=== PATIENT | male | born 1975 | race African-American/Black ===

== ENCOUNTER 2018-10-21 06:55 | Inpatient (IN) | payer SELFPAY ==
[2018-10-21] MEDS ORDERED: Nitroglycerin 2% Ointment 1 INCH/1 GM Packet ONE (07:14)
[2018-10-21 07:21] LABS: #Eosinphils 0.1 thou/uL (0.0-0.7); #Lymphocytes 1.9 thou/uL (1.20-3.40); #Monocytes 1.1 thou/uL (0.11-0.59); #Neutrophils 6.5 thou/uL (1.40-6.50); %Basophils 0.2 % (0.0-1.0); %Eosinophils 1.4 % (0.0-10.0); %Lymphocytes 19.6 % (21.0-51.0); %Monocytes 11.4 % (0.0-10.0); %Neutrophils 67.4 % (42.0-75.0); Hemoglobin 14.2 g/dL (14.0-18.0); Mean Corpuscular HGB CONC 32.6 g/dL (32.0-36.0); Mean Corpuscular Hemoglobin 31.9 pg (27.0-31.0); Mean Corpuscular Volume 97.7 fL (78.0-98.0); Mean Platelet Volume 6.5 fL (7.4-10.4); Platelet Count 204 thou/uL (130-400); RBC Distribution Width 12.2 % (11.5-14.5); Red Blood Cell (RBC) Count 4.47 mill/uL (4.70-6.10); White Blood Cell (WBC) Count 9.7 thou/uL (4.8-10.8)
[2018-10-21 07:39] LABS: ALT (SGPT) 39 U/L (8-55); AST (SGOT) 43 U/L (5-34); Albumin 3.9 g/dL (3.5-5.0); Alkaline Phosphatase 90 U/L (40-150); Anion Gap 13 mmol/L (10-20); BUN (Urea Nitrogen) 17 mg/dL (8.9-20.6); Bilirubin, Total 0.6 mg/dL (0.2-1.2); Calc. Creatinine Clearance 0 mL/min (70-130); Carbon Dioxide 25 mmol/L (22-29); Chloride 107 mmol/L (98-107); Estimated GFR-MDRD 75; Globulin 3.4 g/dL (2.4-3.5); Glucose 122 mg/dL (70-105); Potassium 4.3 mmol/L (3.5-5.1); Protein, Total 7.3 g/dL (6.0-8.3); Sodium 141 mmol/L (136-145)
[2018-10-21 08:16] LABS: Bilirubin Negative (Negative); Blood, Urine Moderate (Negative); Clarity CLEAR (Clear); Glucose, Urine (Dipstick) Negative (Negative); Leukocyte Negative (Negative); Nitrite Negative (Negative); Protein, Urine (Dipstick) Negative (Neg-Trace); Specific Gravity, Urine 1.003 (1.002-1.036); Urobilinogen 0.2 mg/dL (0.2-1.0)
[2018-10-21 08:18] LABS: Bacteria/HPF None Seen HPF (None Seen); Hyaline Casts/LPF 0-3 HYALINE CAST LPF (0-3 Hyaline); Squamous Epithelial 0-3 HPF (0-3); WBC/HPF None Seen HPF (0-3)
[2018-10-21 08:26] LABS: Medtox Reader # READER 1
[2018-10-21 08:27] LABS: Amphetamine Not Detected (NotDetected); Barbiturates Screen Not Detected (NotDetected); Benzodiazepine Screen Not Detected (NotDetected); Cocaine Metabolite Screen Not Detected (NotDetected); Medtox Control Line Valid? VALID (VALID); Methadone Not Detected (NotDetected); Methamphetamine Not Detected (NotDetected); Opiate Screen Not Detected (NotDetected); Oxycodone Screen Not Detected (NotDetected); Phencyclidine (PCP) Not Detected (NotDetected); THC/Cannabinoid Screen Detected (NotDetected); Tricyclic Screen Not Detected (NotDetected)
[2018-10-21] MEDS ORDERED: Nitroglycerin 0.4 MG TAB (25 Tab Bottle) PO PRN (08:31)
[2018-10-21] MEDS ORDERED: Aspirin 325 mg Enteric Coated Tablet PO SCH (09:00)
[2018-10-21] MEDS ORDERED: Ondansetron PF 4 MG/2 ML Vial IVP PRN (09:26)
[2018-10-21] MEDS ORDERED: Ondansetron ODT 4 MG TAB PO PRN (09:27)
[2018-10-21] MEDS ORDERED: Heparin 25,000 units/D5W 500 ML IV SCH ×2 (09:30→13:30)
[2018-10-21] MEDS ORDERED: ISOVUE-370 76%-LOCM 1 ML ONE (11:05)
--- NOTE | 2018-10-21 11:21 | HP ---
PRIMARY CARE PROVIDER: Cathryn Adams PA-C CHIEF COMPLAINT: Chest pain. HISTORY OF PRESENT ILLNESS: Mr. Fregoso is a pleasant 43-year-old gentleman, who was seen at [facility] on October 21, 2018. He was transferred here from [place], where he presented with chest pain. He reports that 2 days ago, he traveled to [place]. He was a intermodal truck driver. Yesterday, he developed pain in his left upper thigh. Around 2:00 a.m. today, he woke up with retrosternal chest discomfort. He describes it as a "gas pain." He had difficulty breathing. He was also nauseous. He describes that the sensation was persistent and improved after he presented to the emergency room. He does not know if the pain improved because of the medications he received or because of time. REVIEW OF SYSTEMS: All other systems reviewed and found to be negative. PAST MEDICAL HISTORY: None. PAST SURGICAL HISTORY: Back surgery. PSYCHIATRIC HISTORY: Anxiety. SOCIAL HISTORY: The patient smokes one pack of cigarettes a day. He drinks alcohol occasionally. He uses marijuana occasionally. FAMILY HISTORY: Myocardial infarction and end-stage renal disease in his mother. ALLERGIES: NO KNOWN DRUG ALLERGIES. CURRENT MEDICATIONS: None. PHYSICAL EXAMINATION: GENERAL: On examination, Mr. Fregoso is awake and alert, not in any acute distress. He is obese. VITAL SIGNS: Blood pressure is 131/83, pulse 104, respiratory rate 16, oxygen saturation of 96% on 2 L of oxygen, and temperature in the emergency room is 99.5 degrees Fahrenheit. EYES: No scleral icterus. No conjunctival pallor. ENT: Moist mucosal membranes. No oropharyngeal erythema or exudates. NECK: Supple and nontender. Trachea is midline. RESPIRATORY: Accessory muscles of breathing are not active. Chest wall movements are symmetric bilaterally. Lungs are clear to auscultation without wheeze, rhonchi, or crepitations. CARDIOVASCULAR: S1 and S2 are heard, tachycardic and regular. Peripheral pulses are palpable. No carotid bruit. No pericardial rub. ABDOMEN: Soft and nontender. Bowel sounds are heard. No hepatomegaly. No splenomegaly. NEUROLOGIC: Cranial nerves 2 through 12 are intact. Deep tendon reflexes are 2+. MUSCULOSKELETAL: Power is 5/5 in all 4 extremities. SKIN: No rashes or subcutaneous nodules. LYMPHATIC: No cervical lymphadenopathy. PSYCHIATRIC: Normal mood, normal affect, the patient is oriented to person, place, and time. LABORATORY DATA: Mr. Fregoso's labs and investigations were reviewed. I reviewed his electrocardiogram, which shows sinus tachycardia. No ST changes to suggest an acute coronary syndrome. He has a right bundle-branch block. I also reviewed his chest x-ray, which does not show any pulmonary infiltrates. He has normal white count, normal hemoglobin, normal platelet count, mildly elevated AST of 43, otherwise unremarkable comprehensive metabolic profile. Elevated troponin-I of 0.194. Urinalysis negative for nitrite and leukocyte esterase. Urine toxicology screen positive for cannabinoids. ASSESSMENT AND PLAN: Mr. Fregoso is a pleasant 43-year-old gentleman, who was seen at [facility] on October 21, 2018. His problem list includes: 1. Chest pain: Etiology unclear, he has risk factors for both pulmonary embolism and cardiac etiologies of chest pain. He will be admitted to the hospital on court monitor. He will have his troponin rechecked. Cardiology Service will be consulted for opinion and help with management. We will also check D-dimer to rule out pulmonary embolism. 2. Sinus tachycardia: We will monitor on telemetry. We will check D-dimer to rule out pulmonary embolism. 3. Tobacco abuse: The patient has been counseled regarding tobacco cessation. We will start him on nicotine replacement therapy. 4. Cannabinoid use: The patient has been counseled regarding cannabinoid use. Many thanks for allowing me to participate in Mr. Fregoso's care. Please feel free to contact me with any questions or concerns. LEVEL OF RISK: High. LEVEL OF COMPLEXITY: High. Job ID: [id number]
[2018-10-21 11:31] VITALS: BMI 34.8
[2018-10-21] MEDS: Nicotine 21 MG PATCH TD SCH (11:52)
[2018-10-21 11:56] LABS: Cardiac Risk 5.9 (Less than 4.5)
[2018-10-21 12:05] LABS: Troponin I 1.455 ng/mL (< 0.028)
[2018-10-21] MEDS ORDERED: Heparin 10,000 UNITS/ 10 ML VIAL SLOW IVP SCH ×2 (12:45→13:30)
--- NOTE | 2018-10-21 13:12 | CT ---
CT ANGIOGRAM CHEST WITH CONTRAST, AND 3-D VOLUME RENDERING CLINICAL INDICATION: Shortness of breath and chest pain and elevated d-dimer COMPARISON: None FINDINGS: Pulmonary arteries: Multiple filling defects are seen in the bilateral pulmonary arteries including t he main pulmonary arteries bilaterally with large filling defects in the distal right main pulmonary artery as well as involving the proximal segmental pulmonary arteries much greater in the r ight upper lobe. Findings are consistent with extensive bilateral pulmonary emboli including a saddle embolus. Aorta: Minimal vascular calcifications are seen. The ascending thoracic aorta is ectatic measuring 4. 3 cm in greatest AP dimension. Lungs: There is atelectasis seen involving the lower lobes bilaterally. No consolidation or pleural f luid is seen. Mediastinum: No enlarged lymph nodes are seen. Osseous structures: No acute process. A subcentimeter exophytic hypodense lesion is seen at the superior pole right kidney statistically li estela representing a cyst. The remainder of the upper abdomen demonstrates grossly normal appearance for arterial phase of imaging. IMPRESSION: 1. Extensive bilateral pulmonary emboli. 2. Above findings discussed with Dr. Correa on 10/21/2018 at 1304 hours.
[2018-10-21] MEDS ORDERED: diphenhydrAMINE 50 MG/ML VIAL IVP SCH (18:00)
[2018-10-21 19:54] LABS: PTT 245.8 SEC (22.9-36.1)
[2018-10-21] MEDS ORDERED: Enoxaparin Sodium 40 MG/0.4 ML SYRINGE SC SCH (21:00)
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
--- NOTE | 2018-10-22 01:37 | CON ---
DATE OF CONSULTATION: HISTORY: Sofiya Fregoso is a 43-year-old black male without any significant past medical history. Yesterday, he did take a long car trip driving to 2-1/2 hours to a location and then 2-1/2 hours back. Last night, he noticed pain in his inner left thigh. He went to sleep and later that night woke up and the pain there was gone. However, he noticed that he was short of breath and had a pressure in the central part of his chest. Breathing seemed to get worse. He became diaphoretic and also nauseous. Ultimately, he went to the emergency room in [place], and was transferred here for further evaluation. He underwent CT angiogram of the chest , which revealed extensive bilateral pulmonary emboli. He has been placed on intravenous heparin. His symptoms have since subsided. He did have elevated troponin I. PAST MEDICAL HISTORY: He denies any history of hypertension or diabetes. He may have been told in the past his cholesterol is elevated. MEDICATIONS: None. ALLERGIES: NONE. OPERATIONS: Surgery on injured leg from playing football. SOCIAL HISTORY: He smokes 1 pack per day. He also smokes marijuana. He occasionally drinks. FAMILY HISTORY: Mother may have had myocardial infarction. REVIEW OF SYSTEMS: A 10-point review of systems is otherwise unremarkable. PHYSICAL EXAMINATION: VITAL SIGNS: Blood pressure 115/77, pulse of 105. HEENT: PERRL. NECK: Supple. CHEST: Clear. CARDIAC: S1 and S2 normal without any S3, S4, or murmurs. Carotid upstroke is normal without bruits. ABDOMEN: Normal bowel sounds without tenderness, or organomegaly. EXTREMITIES: Revealed no clubbing, cyanosis, or edema. There is no palpable tenderness in the left thigh at this time. NEUROLOGIC: Grossly intact. SKIN: Warm and dry. LABORATORY DATA: EKG revealed sinus tachycardia with right bundle-branch block, nonspecific T-wave changes. Hemoglobin 14.2, hematocrit 43.6, white count 9700, platelets 204,000. D-dimer 17.4. CT angiogram of the chest as noted above. Sodium 141, potassium 4.3, chloride 107, carbon dioxide 25, BUN 17, creatinine 1.27, glucose 122. Troponin I is up to 1.455. Cholesterol 189, triglycerides 128, HDL 32, and LDL 131. Urine drug screen was positive for cannabinoids only. IMPRESSION: 1. Bilateral pulmonary emboli. 2. Elevated troponin I. This certainly could be his result of his severe pulmonary embolism. 3. Hypercholesterolemia. 4. Smoker. PLAN: The patient currently is on intravenous heparin, this is being held due to an elevated PTT. He will need to be transitioned to Coumadin. He does not have health insurance, I doubt that he can pay for the newer oral anticoagulants. We discussed the need for consistent low vitamin K intake and frequent checking of the INR. Consideration should be given in the future to possible cardiac catheterization with his elevated troponin I and risk factors of smoking and hypercholesterolemia. However, at the current time, his most important issue is anticoagulation. Job ID: [id number] [email or web address]
[2018-10-22 02:46] LABS: Hemoglobin 13.9 g/dL (14.0-18.0); Lymphocytes 22 % (21-51); MDiff Complete? YES; Mean Corpuscular HGB CONC 32.3 g/dL (32.0-36.0); Mean Corpuscular Volume 95.9 fL (78.0-98.0); Mean Platelet Volume 6.2 fL (7.4-10.4); Monocytes 7 % (0-10); Neutrophil 71 % (42-75); Platelet Count 194 thou/uL (130-400); Platelet Morphology Comment Appears Adequate; RBC Distribution Width 12.1 % (11.5-14.5); RBC Morphology Normal; Red Blood Cell (RBC) Count 4.48 mill/uL (4.70-6.10); White Blood Cell (WBC) Count 8.1 thou/uL (4.8-10.8)
[2018-10-22 02:52] LABS: Anion Gap 14 mmol/L (10-20); BUN (Urea Nitrogen) 11 mg/dL (8.9-20.6); Calc. Creatinine Clearance 156 mL/min (70-130); Calcium 9.1 mg/dL (7.8-10.44); Carbon Dioxide 20 mmol/L (22-29); Chloride 107 mmol/L (98-107); Estimated GFR-MDRD 84; Glucose 102 mg/dL (70-105); Potassium 3.9 mmol/L (3.5-5.1); Sodium 137 mmol/L (136-145)
--- NOTE | 2018-10-22 09:37 | ULT ---
ULTRASOUND WITH DOPPLER DUPLEX VENOUS LOWER EXTREMITY BILATERAL: CPT: 76982 ICD-10-PCS: B54D HISTORY: History of pulmonary thromboembolism, edema. TECHNIQUE: Color flow Doppler, spectral waveform analysis of pulsed Doppler, and avila-scale imaging with jazz huan and augmentation, were used to evaluate the bilateral common femoral, femoral, popliteal, florist's decorator ior tibial, and superficial femoral, veins; and the proximal portions of the profunda femoral and gre ater saphenous, veins. FINDINGS: There is appropriate compressibility and flow within the deep vein structures of the right lower extr emity. Within the popliteal vein of the left lower extremity, there is absence of normal compressibi lity and limited flow compatible with DVT. Remaining deep vein structures of the left lower extremit y are patent. IMPRESSION: Deep vein thrombosis of the left popliteal vein. POS: ROSY
[2018-10-22] MEDS ORDERED: Enoxaparin Sodium 100 MG/ML SYRINGE SC SCH (12:15)
[2018-10-22] MEDS ORDERED: Enoxaparin Sodium 30 MG/0.3 ML SYRINGE SC SCH (12:15)
[2018-10-22] MEDS: Nicotine 21 MG PATCH TD SCH (12:25)
--- NOTE | 2018-10-22 12:55 | PRG ---
DATE OF SERVICE: 10/22/2018 SUBJECTIVE: Mr. Fregoso is doing well. He has no chest pain or shortness of breath. OBJECTIVE: VITAL SIGNS: On exam, temperature 98.6, pulse 90, respirations 16, O2 saturation 93% on room air, and blood pressure 114/82. HEENT: Unremarkable. NECK: No JVD. LUNGS: Clear. CARDIAC: S1 and S2. Regular. ABDOMEN: Soft. EXTREMITIES: No edema. LABORATORY DATA: His Doppler ultrasound showed a left popliteal DVT. White blood cell count is 8.1, hematocrit 43, and platelet count 194. Sodium 137, potassium 3.9, chloride 107, CO2 of 20, BUN 11, creatinine 1.1, and glucose 102. ASSESSMENT: Deep vein thrombosis/pulmonary embolism. PLAN: I have restarted the Lovenox that was discontinued by the Sound coverage person last night. I have spoken with the nursing staff and the patient's covering Sound Physician today about anticoagulation. The patient needs to be anticoagulated for 6 months. Job ID: [id number]
[2018-10-22 14:46] LABS: Prothrombin Time 13.7 SEC (12.0-14.7)
--- NOTE | 2018-10-22 14:59 | PDOC.PN ---
- Subjective Encounter Start Date: 10/22/18 Encounter Start Time: 14:58 Subjective: feels better. no CP/leg pain or SOB -: care discussed w family at bedside. - Objective MAR Reviewed: Yes Vital Signs & Weight: Vital Signs (12 hours) Temp Pulse Resp BP Pulse Ox 10/22/18 12:34 98.6 F 90 16 114/82 93 L 10/22/18 08:00 98.6 F 83 18 121/81 94 L 10/22/18 07:33 97 10/22/18 03:10 99.2 F 97 18 130/80 93 L Weight Weight 291 lb I&O: 10/21/18 10/22/18 10/23/18 06:59 06:59 06:59 Intake Total 240 180 Balance 240 180 Result Diagrams: 10/22/18 02:10 10/22/18 02:10 Additional Labs: Laboratory Tests 10/21/18 10/21/18 10/21/18 05:23 07:12 11:31 D-Dimer Troponin I 0.194 H 1.120 H* 1.455 H* Triglycerides Cholesterol LDL Cholesterol, Calc HDL Cholesterol 10/21/18 10/21/18 11:31 11:31 D-Dimer 17.44 H Troponin I Triglycerides 128 Cholesterol 189 LDL Cholesterol, Calc 131 HDL Cholesterol 32 Phys Exam - Physical Examination Constitutional: NAD HEENT: PERRLA, moist MMs, sclera anicteric, oral pharynx no lesions Neck: no nodes, no JVD, supple, full ROM Respiratory: no wheezing, no rales, no rhonchi, clear to auscultation bilateral Cardiovascular: RRR, no significant murmur Gastrointestinal: soft, non-tender, no distention, positive bowel sounds Musculoskeletal: no edema, pulses present Neurological: non-focal, normal sensation, moves all 4 limbs Psychiatric: normal affect, A&O x 3 Skin: no rash Dx/Plan (1) Pulmonary embolism Code(s): I26.99 - OTHER PULMONARY EMBOLISM WITHOUT ACUTE COR PULMONALE Status : Acute Qualifiers: Pulmonary embolism type: saddle Chronicity: acute Comment: on anticoagulation (2) Deep vein thrombosis (DVT) of left lower extremity Code(s): I82.402 - ACUTE EMBOLISM AND THOMBOS UNSP DEEP VEINS OF L LOW EXTREM Status: Acute Qualifiers: Affected thrombotic vein of extremity: popliteal Chronicity: acute Qualified Code(s): I82.432 - Acute embolism and thrombosis of left popliteal vein (3) Troponin level elevated Code(s): R74.8 - ABNORMAL LEVELS OF OTHER SERUM ENZYMES Status: Acute Comment: due to Right ventricular strain from Acute PE.ECHO pending (4) Tobacco abuse Code(s): Z72.0 - TOBACCO USE Status: Chronic (5) Tobacco abuse counseling Code(s): Z71.6 - TOBACCO ABUSE COUNSELING Status: Acute - Plan plan discussed w/ family, DVT proph w/SCDs Clinicaly stable. discussed retirement OAC.would prefer Couamdin d/t cost -: Cont Lovenox BID 1mg/kg for now.heparin drip stopped. -: start coumadin toniught & monitor PT/INR -: CM to assist w OP INR monitoring -: monitor Troponin & H/H & Cr.follow ECHO. * . Review of Systems - Review of Systems Constitutional: negative: fever, chills, sweats, weakness, malaise, other ENT: negative: Ear Pain, Ear Discharge, Nose Pain, Nose Discharge, Nose Congestion, Mouth Pain, Mouth Swelling, Throat Pain, Throat Swelling, Other Respiratory: negative: Cough, Dry, Shortness of Breath, Hemoptysis, SOB with Excertion, Pleuritic Pain, Sputum, Wheezing Cardiovascular: negative: chest pain, palpitations, orthopnea, paroxysmal nocturnal dyspnea, edema, light headedness, other Gastrointestinal: negative: Nausea, Vomiting, Abdominal Pain, Diarrhea, Constipation, Melena, Hematochezia, Other Genitourinary: negative: Dysuria, Frequency, Incontinence, Hematuria, Retention , Other Musculoskeletal: negative: Neck Pain, Shoulder Pain, Arm Pain, Back Pain, Hand Pain, Leg Pain, Foot Pain, Other Neurological: negative: Weakness, Numbness, Incoordination, Change in Speech, Confusion, Seizures, Other - Medications/Allergies Allergies/Adverse Reactions: Allergies Allergy/AdvReac Type Severity Reaction Status Date / Time No Known Drug Allergies Allergy Verified 10/21/18 10:44 Medications: Current Medications Enoxaparin Sodium (Lovenox) 100 mg SC 0900,2100 [facility] Enoxaparin Sodium (Lovenox) 30 mg SC 0900,2100 [facility] Nicotine (Nicoderm Patch) 21 mg TD Q24H [facility] Last Admin: 10/22/18 12:25 Dose: 21 mg Nitroglycerin (Nitrostat) 0.4 mg PO Q5MIN PRN PRN Reason: Chest Pain Last Admin: 10/21/18 10:38 Dose: 0.4 mg Sodium Chloride (Flush - Normal Saline) 10 ml IVF Q12HR [facility] Last Admin: 10/22/18 12:25 Dose: 10 ml Sodium Chloride (Flush - Normal Saline) 10 ml IVF PRN PRN PRN Reason: Saline Flush Warfarin Sodium (Coumadin) 10 mg PO 1700 [facility]
[2018-10-22] MEDS: Warfarin Sodium 10 MG TAB PO SCH (17:54)
[2018-10-22] MEDS: Enoxaparin Sodium 30 MG/0.3 ML SYRINGE SC SCH (20:05)
[2018-10-22] MEDS: Enoxaparin Sodium 100 MG/ML SYRINGE SC SCH (20:05)
[2018-10-22 22:45] LABS: Hemoglobin 14.4 g/dL (14.0-18.0); Platelet Count 206 thou/uL (130-400)
[2018-10-22] MEDS: Melatonin 3 MG TAB PO PRN (23:56)
[2018-10-23 05:14] LABS: Prothrombin Time 13.5 SEC (12.0-14.7)
[2018-10-23 05:29] LABS: Eosinophils 1 % (0-10); Hemoglobin 14.4 g/dL (14.0-18.0); Lymphocytes 29 % (21-51); MDiff Complete? YES; Mean Corpuscular HGB CONC 33.6 g/dL (32.0-36.0); Mean Corpuscular Hemoglobin 32.3 pg (27.0-31.0); Mean Corpuscular Volume 96.3 fL (78.0-98.0); Mean Platelet Volume 6.5 fL (7.4-10.4); Monocytes 9 % (0-10); Neutrophil 61 % (42-75); Platelet Count 207 thou/uL (130-400); Platelet Morphology Comment Appears Adequate; RBC Distribution Width 11.9 % (11.5-14.5); Red Blood Cell (RBC) Count 4.45 mill/uL (4.70-6.10); White Blood Cell (WBC) Count 8.9 thou/uL (4.8-10.8)
[2018-10-23 05:30] LABS: Anion Gap 17 mmol/L (10-20); BUN (Urea Nitrogen) 15 mg/dL (8.9-20.6); Calc. Creatinine Clearance 152 mL/min (70-130); Calcium 9.4 mg/dL (7.8-10.44); Carbon Dioxide 18 mmol/L (22-29); Chloride 106 mmol/L (98-107); Estimated GFR-MDRD 83; Glucose 87 mg/dL (70-105); Potassium 3.9 mmol/L (3.5-5.1); Sodium 137 mmol/L (136-145)
[2018-10-23] MEDS: Enoxaparin Sodium 100 MG/ML SYRINGE SC SCH ×2 (08:14→20:55)
[2018-10-23] MEDS: Enoxaparin Sodium 30 MG/0.3 ML SYRINGE SC SCH ×2 (08:15→20:56)
--- NOTE | 2018-10-23 10:08 | PRG ---
DATE OF SERVICE: SUBJECTIVE: The patient is doing reasonably well, has no acute complaints. OBJECTIVE: VITAL SIGNS: Temperature 98.4, pulse 78, respirations 18, O2 saturation 92%, blood pressure 139/87. HEENT: Unremarkable. NECK: No JVD. CHEST: Clear. CARDIAC: S1, S2. Regular. ABDOMEN: Soft. EXTREMITIES: No edema. LABORATORY DATA: White blood cell count 8.9, hematocrit 42.8, and platelet count 207. Sodium 137, potassium 3.9, chloride 106, CO2 of 18, BUN 15, creatinine 1.1, glucose 87. ASSESSMENT: Deep vein thrombosis/pulmonary embolism. RECOMMENDATIONS: I have concerns that he would not be able to acquire Eliquis or Xarelto for the full 6 months' duration. Therefore, I would recommend Coumadin. Goal INR needs to be between 2.0 and 2.5, and duration needs to be 6 months. Job ID: [id number]
[2018-10-23] MEDS: Nicotine 21 MG PATCH TD SCH (11:03)
--- NOTE | 2018-10-23 14:24 | PDOC.PN ---
- Subjective Encounter Start Date: 10/23/18 Encounter Start Time: 14:22 Subjective: no new complaints.no CP/SOB. -: wishes to pursue assistance program for asad -: care discussed w at bedside - Objective MAR Reviewed: Yes Vital Signs & Weight: Vital Signs (12 hours) Temp Pulse Resp BP Pulse Ox 10/23/18 12:05 97.9 F 94 18 120/77 93 L 10/23/18 08:15 93 L 10/23/18 08:00 98.2 F 89 18 131/85 93 L 10/23/18 03:15 98.4 F 78 18 139/87 92 L Weight Weight 289 lb 6.4 oz I&O: 10/22/18 10/23/18 10/24/18 06:59 06:59 06:59 Intake Total 240 1350 Output Total 250 Balance 240 1100 Result Diagrams: 10/23/18 04:14 10/23/18 04:14 Phys Exam - Physical Examination Constitutional: NAD HEENT: PERRLA, moist MMs, sclera anicteric, oral pharynx no lesions Neck: no nodes, no JVD, supple, full ROM Respiratory: no wheezing, no rales, no rhonchi, clear to auscultation bilateral Cardiovascular: RRR, no significant murmur, no rub Gastrointestinal: soft, non-tender, no distention, positive bowel sounds Musculoskeletal: no edema, pulses present Neurological: non-focal, normal sensation, moves all 4 limbs Psychiatric: normal affect, A&O x 3 Skin: no rash Dx/Plan (1) Pulmonary embolism Code(s): I26.99 - OTHER PULMONARY EMBOLISM WITHOUT ACUTE COR PULMONALE Status : Acute Qualifiers: Pulmonary embolism type: saddle Chronicity: acute Comment: on anticoagulation (2) Deep vein thrombosis (DVT) of left lower extremity Code(s): I82.402 - ACUTE EMBOLISM AND THOMBOS UNSP DEEP VEINS OF L LOW EXTREM Status: Acute Qualifiers: Affected thrombotic vein of extremity: popliteal Chronicity: acute Qualified Code(s): I82.432 - Acute embolism and thrombosis of left popliteal vein (3) Troponin level elevated Code(s): R74.8 - ABNORMAL LEVELS OF OTHER SERUM ENZYMES Status: Acute Comment: due to Right ventricular strain from Acute PE.ECHO pending (4) Tobacco abuse Code(s): Z72.0 - TOBACCO USE Status: Chronic (5) Tobacco abuse counseling Code(s): Z71.6 - TOBACCO ABUSE COUNSELING Status: Acute - Plan plan discussed w/ family, DVT proph w/SCDs Agree with .Pt poor candidate for eliquis as unfunded & high risk -: of missing doses.will recommend Coumadin w F/U for INR at PCP -: PCP set up in process -: cont coumadin w daily INR monitoring.Cont Lovenox 1 mg/kg for bridiging. -: H/H stable.Monitor.Will keep in house untill INR therapeutic * . Review of Systems - Review of Systems Constitutional: negative: fever, chills, sweats, weakness, malaise, other ENT: negative: Ear Pain, Ear Discharge, Nose Pain, Nose Discharge, Nose Congestion, Mouth Pain, Mouth Swelling, Throat Pain, Throat Swelling, Other Respiratory: negative: Cough, Dry, Shortness of Breath, Hemoptysis, SOB with Excertion, Pleuritic Pain, Sputum, Wheezing Cardiovascular: negative: chest pain, palpitations, orthopnea, paroxysmal nocturnal dyspnea, edema, light headedness, other Gastrointestinal: negative: Nausea, Vomiting, Abdominal Pain, Diarrhea, Constipation, Melena, Hematochezia, Other Genitourinary: negative: Dysuria, Frequency, Incontinence, Hematuria, Retention , Other Musculoskeletal: negative: Neck Pain, Shoulder Pain, Arm Pain, Back Pain, Hand Pain, Leg Pain, Foot Pain, Other Neurological: negative: Weakness, Numbness, Incoordination, Change in Speech, Confusion, Seizures, Other - Medications/Allergies Allergies/Adverse Reactions: Allergies Allergy/AdvReac Type Severity Reaction Status Date / Time No Known Drug Allergies Allergy Verified 10/21/18 10:44 Medications: Current Medications Enoxaparin Sodium (Lovenox) 100 mg SC 0900,2099 [facility] Last Admin: 10/23/18 08:14 Dose: 100 mg Enoxaparin Sodium (Lovenox) 30 mg SC 0900,2099 [facility] Last Admin: 10/23/18 08:15 Dose: 30 mg Melatonin (Melatonin) 6 mg PO HS PRN PRN Reason: Insomnia Last Admin: 10/22/18 23:56 Dose: 6 mg Nicotine (Nicoderm Patch) 21 mg TD Q24H [facility] Last Admin: 10/23/18 11:03 Dose: Not Given Nitroglycerin (Nitrostat) 0.4 mg PO Q5MIN PRN PRN Reason: Chest Pain Last Admin: 10/21/18 10:38 Dose: 0.4 mg Sodium Chloride (Flush - Normal Saline) 10 ml IVF Q12HR [facility] Last Admin: 10/23/18 08:16 Dose: 10 ml Sodium Chloride (Flush - Normal Saline) 10 ml IVF PRN PRN PRN Reason: Saline Flush Warfarin Sodium (Coumadin) 10 mg PO 1700 [facility] Last Admin: 10/22/18 17:54 Dose: 10 mg
[2018-10-23] MEDS: Warfarin Sodium 10 MG TAB PO SCH (17:11)
[2018-10-23] MEDS: Melatonin 3 MG TAB PO PRN (23:18)
[2018-10-24 07:13] LABS: #Basophils 0.1 thou/uL (0.0-0.2); #Eosinphils 0.2 thou/uL (0.0-0.7); #Lymphocytes 2.8 thou/uL (1.20-3.40); #Monocytes 1.2 thou/uL (0.11-0.59); #Neutrophils 4.3 thou/uL (1.40-6.50); %Basophils 0.9 % (0.0-1.0); %Lymphocytes 32.5 % (21.0-51.0); %Monocytes 14.5 % (0.0-10.0); %Neutrophils 50.1 % (42.0-75.0); Hemoglobin 14.7 g/dL (14.0-18.0); Mean Corpuscular HGB CONC 33.5 g/dL (32.0-36.0); Mean Corpuscular Hemoglobin 32.1 pg (27.0-31.0); Mean Corpuscular Volume 95.7 fL (78.0-98.0); Platelet Count 224 thou/uL (130-400); RBC Distribution Width 11.7 % (11.5-14.5); Red Blood Cell (RBC) Count 4.57 mill/uL (4.70-6.10); White Blood Cell (WBC) Count 8.5 thou/uL (4.8-10.8)
[2018-10-24 07:20] LABS: INR-International Normal Ratio 1.2; Prothrombin Time 14.9 SEC (12.0-14.7)
[2018-10-24 07:37] LABS: Anion Gap 17 mmol/L (10-20); BUN (Urea Nitrogen) 15 mg/dL (8.9-20.6); Calc. Creatinine Clearance 154 mL/min (70-130); Calcium 9.4 mg/dL (7.8-10.44); Carbon Dioxide 20 mmol/L (22-29); Chloride 104 mmol/L (98-107); Estimated GFR-MDRD 84; Glucose 89 mg/dL (70-105); Potassium 3.8 mmol/L (3.5-5.1); Sodium 137 mmol/L (136-145)
[2018-10-24] MEDS: Enoxaparin Sodium 100 MG/ML SYRINGE SC SCH ×2 (09:20→19:43)
[2018-10-24] MEDS: Enoxaparin Sodium 30 MG/0.3 ML SYRINGE SC SCH ×2 (09:21→19:44)
--- NOTE | 2018-10-24 10:13 | PRG ---
DATE OF SERVICE: 10/24/2018 SUBJECTIVE: The patient is upset because he is having to wait around the hospital waiting for his anticoagulation. OBJECTIVE: VITAL SIGNS: On exam, his temperature is 98.5, pulse 75, respirations 17, O2 saturation 94% on room air, and blood pressure 126/81. HEENT: Unremarkable. NECK: No JVD. CHEST: Fairly clear. CARDIAC: S1, S2. Regular. ABDOMEN: Soft. EXTREMITIES: No edema. LABORATORY DATA: INR is 1.2, hemoglobin 14.7, platelet count 224, creatinine 1.1. ASSESSMENT: Deep venous thrombosis/pulmonary embolism. RECOMMENDATIONS: Continue enoxaparin with Coumadin. When his INR is greater than 2, he can be discharged. Job ID: [id number]
[2018-10-24] MEDS: Nicotine 21 MG PATCH TD SCH (12:26)
--- NOTE | 2018-10-24 14:24 | PDOC.PN ---
- Subjective Encounter Start Date: 10/24/18 Encounter Start Time: 14:20 Subjective: f/u for PE/DVT on current Lovenox bridging with Coumadin. INR 1.2 currently -: No new issues. - Objective MAR Reviewed: Yes Vital Signs & Weight: Vital Signs (12 hours) Temp Pulse Resp BP BP Pulse Ox 10/24/18 12:00 99.5 F 95 14 132/88 96 10/24/18 08:00 94 L 10/24/18 07:14 98.5 F 75 17 126/81 94 L 10/24/18 03:27 98.5 F 82 16 131/84 92 L Weight Weight 289 lb 6.4 oz I&O: 10/23/18 10/24/18 10/25/18 06:59 06:59 06:59 Intake Total 1350 1350 Output Total 250 325 Balance 1100 1025 Result Diagrams: 10/24/18 07:04 10/24/18 07:04 Additional Labs: Laboratory Tests 10/21/18 10/21/18 10/22/18 07:30 11:31 13:47 INR 1.0 Triglycerides 128 Cholesterol 189 LDL Cholesterol, Calc 131 HDL Cholesterol 32 U Cannabinoids Screen Detected H 10/23/18 10/24/18 04:14 07:04 INR 1.0 1.2 Triglycerides Cholesterol LDL Cholesterol, Calc HDL Cholesterol U Cannabinoids Screen Radiology Reviewed by me: Yes (Echo - EF 60-65%, mod LAE, diast dysfunction) EKG Reviewed by me: Yes (Tele - SR) Phys Exam - Physical Examination Constitutional: NAD HEENT: PERRLA, sclera anicteric, oral pharynx no lesions Neck: no nodes, no JVD, supple, full ROM Respiratory: no wheezing, no rales, no rhonchi, clear to auscultation bilateral S1, S2 Cardiovascular: RRR, no significant murmur, no rub, gallop Gastrointestinal: soft, non-tender, no distention, positive bowel sounds Musculoskeletal: pulses present, edema present Neurological: normal sensation, moves all 4 limbs Psychiatric: A&O x 3 Skin: normal turgor, cap refill <2 seconds Dx/Plan (1) Deep vein thrombosis (DVT) of left lower extremity Code(s): I82.402 - ACUTE EMBOLISM AND THOMBOS UNSP DEEP VEINS OF L LOW EXTREM Status: Acute Qualifiers: Affected thrombotic vein of extremity: popliteal Chronicity: acute Qualified Code(s): I82.432 - Acute embolism and thrombosis of left popliteal vein Comment: Continue Coumadin 10mg daily, current INR 1.2, Lovenox bridging (2) Pulmonary embolism Code(s): I26.99 - OTHER PULMONARY EMBOLISM WITHOUT ACUTE COR PULMONALE Status : Acute Qualifiers: Pulmonary embolism type: saddle Chronicity: acute Comment: Coumadin for correction, Lovenox bridging until INR 2 or greater (3) Tobacco abuse Code(s): Z72.0 - TOBACCO USE Status: Chronic Comment: Tobacco cessation resources (4) Cannabis abuse Code(s): F12.10 - CANNABIS ABUSE, UNCOMPLICATED Status: Chronic Comment: Cessation resources - Plan plan discussed w/ family, social sciences lecturer, out of bed/ambulate Stable currently -: Increase Coumadin 15mg daily -: Continue Lovenox bridging -: OOB/ambulate -: AM lab: H/H, PT/INR * .
[2018-10-24] MEDS ORDERED: Warfarin Sodium 10 MG TAB PO SCH (14:36)
[2018-10-24] MEDS: Melatonin 3 MG TAB PO PRN (19:44)
[2018-10-24 23:56] LABS: Hemoglobin 14.4 g/dL (14.0-18.0); Platelet Count 267 thou/uL (130-400)
[2018-10-25 06:56] LABS: Hemoglobin 14.6 g/dL (14.0-18.0); Mean Corpuscular HGB CONC 33.1 g/dL (32.0-36.0); Mean Corpuscular Hemoglobin 31.9 pg (27.0-31.0); Mean Corpuscular Volume 96.3 fL (78.0-98.0); Mean Platelet Volume 6.5 fL (7.4-10.4); Platelet Count 248 thou/uL (130-400); RBC Distribution Width 11.9 % (11.5-14.5); Red Blood Cell (RBC) Count 4.56 mill/uL (4.70-6.10); White Blood Cell (WBC) Count 7.9 thou/uL (4.8-10.8)
[2018-10-25 06:57] LABS: INR-International Normal Ratio 1.3; Prothrombin Time 16.3 SEC (12.0-14.7)
[2018-10-25 07:24] LABS: Anion Gap 13 mmol/L (10-20); BUN (Urea Nitrogen) 15 mg/dL (8.9-20.6); Calc. Creatinine Clearance 150 mL/min (70-130); Calcium 9.4 mg/dL (7.8-10.44); Carbon Dioxide 24 mmol/L (22-29); Chloride 105 mmol/L (98-107); Estimated GFR-MDRD 84; Glucose 91 mg/dL (70-105); Potassium 3.8 mmol/L (3.5-5.1); Sodium 138 mmol/L (136-145)
--- NOTE | 2018-10-25 08:19 | PRG ---
DATE OF SERVICE: 10/25/2018 SUBJECTIVE: He is awake, alert, in no distress. Has no complaints. Says he is breathing better. OBJECTIVE: VITAL SIGNS: On exam, his temperature is 99.0, pulse 86, respirations 14, O2 saturation 94% on room air, blood pressure 122/88. HEENT: Unremarkable. NECK: No adenopathy. No JVD. CHEST: Clear. CARDIAC: S1, S2. Regular. ABDOMEN: Soft, nontender. EXTREMITIES: No edema. LABORATORY DATA: White blood cell count 7.9, hematocrit 43.9, and platelet count 248. Sodium 130, potassium 3.8, BUN 15, creatinine 1.1. INR is up to 1.3. ASSESSMENT: Deep vein thrombosis/pulmonary embolism. PLAN: Awaiting therapeutic INR. Continuing Lovenox to bridge Coumadin therapy. Job ID: [id number]
[2018-10-25 08:50] LABS: Eosinophils 3 % (0-10); Lymphocytes 36 % (21-51); MDiff Complete? YES; Metamyelocyte 1 % (0-0); Monocytes 9 % (0-10); Neutrophil 47 % (42-75); RBC Morphology Normal; Reactive Lymphocytes 4 % (0-10)
[2018-10-25] MEDS: Enoxaparin Sodium 100 MG/ML SYRINGE SC SCH ×2 (10:09→20:12)
[2018-10-25] MEDS: Enoxaparin Sodium 30 MG/0.3 ML SYRINGE SC SCH ×2 (10:10→20:12)
[2018-10-25] MEDS: Nicotine 21 MG PATCH TD SCH (12:18)
--- NOTE | 2018-10-25 16:47 | PDOC.PN ---
- Subjective Encounter Start Date: 10/25/18 Encounter Start Time: 16:45 Subjective: f/u for Bilat PE/DVT LLE on Coumadin/Lovenox. INR 1.3 today. -: No new complaints. - Objective MAR Reviewed: Yes Vital Signs & Weight: Vital Signs (12 hours) Temp Pulse Resp BP Pulse Ox 10/25/18 11:56 98.1 F 73 14 118/81 95 10/25/18 08:00 94 L 10/25/18 07:30 99.0 F 86 14 122/88 94 L Weight Weight 282 lb I&O: 10/24/18 10/25/18 10/26/18 06:59 06:59 06:59 Intake Total 1350 1570 Output Total 325 Balance 1025 1570 Result Diagrams: 10/25/18 06:23 10/25/18 06:23 Additional Labs: Laboratory Tests 10/21/18 10/21/18 10/22/18 07:30 11:31 13:47 PT INR 1.0 Triglycerides 128 Cholesterol 189 LDL Cholesterol, Calc 131 HDL Cholesterol 32 U Cannabinoids Screen Detected H 10/23/18 10/24/18 10/25/18 04:14 07:04 06:23 PT 16.3 H INR 1.0 1.2 1.3 Triglycerides Cholesterol LDL Cholesterol, Calc HDL Cholesterol U Cannabinoids Screen EKG Reviewed by me: Yes (Tele - SR) Phys Exam - Physical Examination Constitutional: NAD HEENT: PERRLA, sclera anicteric, oral pharynx no lesions Neck: no nodes, no JVD, supple, full ROM Respiratory: no wheezing, no rales, no rhonchi, clear to auscultation bilateral S1, S2 Cardiovascular: RRR, no significant murmur, no rub, gallop Gastrointestinal: soft, non-tender, no distention, positive bowel sounds Musculoskeletal: no edema, pulses present Neurological: normal sensation, moves all 4 limbs Psychiatric: A&O x 3 Skin: normal turgor, cap refill <2 seconds Dx/Plan (1) Deep vein thrombosis (DVT) of left lower extremity Code(s): I82.402 - ACUTE EMBOLISM AND THOMBOS UNSP DEEP VEINS OF L LOW EXTREM Status: Acute Qualifiers: Affected thrombotic vein of extremity: popliteal Chronicity: acute Qualified Code(s): I82.432 - Acute embolism and thrombosis of left popliteal vein Comment: Continue Coumadin 20mg daily, current INR 1.3, Lovenox bridging (2) Pulmonary embolism Code(s): I26.99 - OTHER PULMONARY EMBOLISM WITHOUT ACUTE COR PULMONALE Status : Acute Qualifiers: Pulmonary embolism type: saddle Chronicity: acute Comment: Coumadin for assisted, Lovenox bridging until INR 2 or greater (3) Tobacco abuse Code(s): Z72.0 - TOBACCO USE Status: Chronic Comment: Tobacco cessation resources (4) Cannabis abuse Code(s): F12.10 - CANNABIS ABUSE, UNCOMPLICATED Status: Chronic Comment: Cessation resources - Plan plan discussed w/ family, neonatal social worker Stable currently -: Increase Coumadin 20mg daily -: Continue Lovenox bridging until INR = 2 -: OOB/ambulate -: Tobacco cessation * AM lab: PT/INR
[2018-10-25] MEDS: Warfarin Sodium 10 MG TAB PO SCH (17:14)
[2018-10-25] MEDS: Melatonin 3 MG TAB PO PRN (20:12)
[2018-10-26 05:09] LABS: INR-International Normal Ratio 1.7; Prothrombin Time 19.8 SEC (12.0-14.7)
[2018-10-26 05:12] LABS: #Basophils 0.1 thou/uL (0.0-0.2); #Eosinphils 0.2 thou/uL (0.0-0.7); %Eosinophils 2.9 % (0.0-10.0); %Lymphocytes 40.9 % (21.0-51.0); %Monocytes 13.7 % (0.0-10.0); %Neutrophils 41.5 % (42.0-75.0); Hemoglobin 14.9 g/dL (14.0-18.0); Mean Corpuscular HGB CONC 33.6 g/dL (32.0-36.0); Mean Corpuscular Hemoglobin 32.5 pg (27.0-31.0); Mean Corpuscular Volume 96.6 fL (78.0-98.0); Mean Platelet Volume 6.6 fL (7.4-10.4); Platelet Count 267 thou/uL (130-400); RBC Distribution Width 11.9 % (11.5-14.5); Red Blood Cell (RBC) Count 4.58 mill/uL (4.70-6.10); White Blood Cell (WBC) Count 7.2 thou/uL (4.8-10.8)
[2018-10-26 05:24] LABS: Anion Gap 12 mmol/L (10-20); BUN (Urea Nitrogen) 14 mg/dL (8.9-20.6); Calc. Creatinine Clearance 157 mL/min (70-130); Calcium 9.3 mg/dL (7.8-10.44); Carbon Dioxide 24 mmol/L (22-29); Chloride 106 mmol/L (98-107); Estimated GFR-MDRD 89; Glucose 93 mg/dL (70-105); Potassium 3.8 mmol/L (3.5-5.1); Sodium 138 mmol/L (136-145)
[2018-10-26] MEDS: Enoxaparin Sodium 30 MG/0.3 ML SYRINGE SC SCH ×2 (08:56→21:15)
[2018-10-26] MEDS: Enoxaparin Sodium 100 MG/ML SYRINGE SC SCH ×2 (08:56→21:16)
--- NOTE | 2018-10-26 10:19 | PRG ---
DATE OF SERVICE: 10/26/2018 SUBJECTIVE: Doing well. No complaints. OBJECTIVE: VITAL SIGNS: Temperature 98.5, pulse 61, respirations 17, O2 saturation 96% on room air, and blood pressure 121/79. HEENT: Unremarkable. NECK: No JVD. LUNGS: Clear to auscultation. CARDIAC: S1 and S2. Regular. ABDOMEN: Soft. EXTREMITIES: No edema. LABORATORY DATA: INR is 1.7. ASSESSMENT: Pulmonary embolism/deep vein thrombosis. PLAN: He can be transferred to the medical floor. I anticipate his INR being above 2 tomorrow and he can be discharged. He needs to remain on anticoagulation for 6 months. Job ID: [id number]
[2018-10-26] MEDS: Nicotine 21 MG PATCH TD SCH (13:35)
--- NOTE | 2018-10-26 14:54 | PDOC.PN ---
- Subjective Encounter Start Date: 10/26/18 Encounter Start Time: 14:45 Subjective: f/u for LLE DVT and bilat PE's on Coumadin/Lovenox. INR 1.7 -: Feels ok overall. Less dyspnea. - Objective MAR Reviewed: Yes Vital Signs & Weight: Vital Signs (12 hours) Temp Pulse Resp BP BP Pulse Ox 10/26/18 14:50 97.8 F 75 18 109/75 94 L 10/26/18 12:00 98.6 F 70 16 132/76 95 10/26/18 07:50 98.5 F 61 17 129/79 96 10/26/18 03:02 99.1 F 71 18 117/77 92 L Weight Weight 279 lb 6.4 oz I&O: 10/25/18 10/26/18 10/27/18 06:59 06:59 06:59 Intake Total 1570 1150 Balance 1570 1150 Result Diagrams: 10/26/18 04:16 10/26/18 04:16 Additional Labs: Laboratory Tests 10/21/18 10/21/18 10/22/18 07:30 11:31 13:47 PT INR 1.0 Triglycerides 128 Cholesterol 189 LDL Cholesterol, Calc 131 HDL Cholesterol 32 U Cannabinoids Screen Detected H 10/23/18 10/24/18 10/25/18 04:14 07:04 06:23 PT 16.3 H INR 1.0 1.2 1.3 Triglycerides Cholesterol LDL Cholesterol, Calc HDL Cholesterol U Cannabinoids Screen 10/26/18 04:16 PT 19.8 H INR 1.7 Triglycerides Cholesterol LDL Cholesterol, Calc HDL Cholesterol U Cannabinoids Screen EKG Reviewed by me: Yes (Tele - SR) Phys Exam - Physical Examination Constitutional: NAD HEENT: PERRLA, sclera anicteric, oral pharynx no lesions Neck: no nodes, no JVD, supple, full ROM Respiratory: no wheezing, no rales, no rhonchi, clear to auscultation bilateral S1, S2 Cardiovascular: RRR, no significant murmur, no rub, gallop Gastrointestinal: soft, non-tender, no distention, positive bowel sounds Musculoskeletal: no edema, pulses present Neurological: normal sensation, moves all 4 limbs Psychiatric: A&O x 3 Skin: normal turgor, cap refill <2 seconds Dx/Plan (1) Deep vein thrombosis (DVT) of left lower extremity Code(s): I82.402 - ACUTE EMBOLISM AND THOMBOS UNSP DEEP VEINS OF L LOW EXTREM Status: Acute Qualifiers: Affected thrombotic vein of extremity: popliteal Chronicity: acute Qualified Code(s): I82.432 - Acute embolism and thrombosis of left popliteal vein Comment: Continue Coumadin 20mg daily, current INR 1.7, Lovenox bridging, likely will be >2 in am (2) Pulmonary embolism Code(s): I26.99 - OTHER PULMONARY EMBOLISM WITHOUT ACUTE COR PULMONALE Status : Acute Qualifiers: Pulmonary embolism type: saddle Chronicity: acute Comment: Coumadin for senior living, Lovenox bridging until INR 2 or greater (3) Tobacco abuse Code(s): Z72.0 - TOBACCO USE Status: Chronic Comment: Tobacco cessation resources (4) Cannabis abuse Code(s): F12.10 - CANNABIS ABUSE, UNCOMPLICATED Status: Chronic Comment: Cessation resources - Plan director social service, out of bed/ambulate Stable overall -: Continue Coumadin 20mg daily -: Lovenox bridging for another 24h -: OOB/ambulate -: AM lab: PT/INR * Likely home in am
[2018-10-26] MEDS: Warfarin Sodium 10 MG TAB PO SCH (16:11)
[2018-10-26] MEDS: Melatonin 3 MG TAB PO PRN (21:15)
[2018-10-26 22:43] LABS: Hemoglobin 14.3 g/dL (14.0-18.0); Platelet Count 295 thou/uL (130-400)
[2018-10-27 07:12] LABS: Hemoglobin 14.6 g/dL (14.0-18.0); Mean Corpuscular Hemoglobin 32.2 pg (27.0-31.0); Mean Corpuscular Volume 97.6 fL (78.0-98.0); Mean Platelet Volume 6.6 fL (7.4-10.4); Platelet Count 275 thou/uL (130-400); Red Blood Cell (RBC) Count 4.52 mill/uL (4.70-6.10); White Blood Cell (WBC) Count 7.2 thou/uL (4.8-10.8)
[2018-10-27 07:15] LABS: INR-International Normal Ratio 2.3; Prothrombin Time 25.7 SEC (12.0-14.7)
[2018-10-27 07:21] VITALS: BP 126/87; TEMP 98.3
[2018-10-27 07:33] LABS: Anion Gap 15 mmol/L (10-20); BUN (Urea Nitrogen) 12 mg/dL (8.9-20.6); Calc. Creatinine Clearance 151 mL/min (70-130); Calcium 9.3 mg/dL (7.8-10.44); Carbon Dioxide 22 mmol/L (22-29); Chloride 106 mmol/L (98-107); Estimated GFR-MDRD 85; Glucose 87 mg/dL (70-105); Sodium 139 mmol/L (136-145)
[2018-10-27 08:15] LABS: Band 1 % (5-11); Eosinophils 1 % (0-10); Lymphocytes 48 % (21-51); MDiff Complete? YES; Monocytes 11 % (0-10); Neutrophil 39 % (42-75); RBC Morphology Normal
[2018-10-27] MEDS: Enoxaparin Sodium 30 MG/0.3 ML SYRINGE SC SCH (10:10)
[2018-10-27] MEDS: Enoxaparin Sodium 100 MG/ML SYRINGE SC SCH (10:10)
--- NOTE | 2018-10-28 01:44 | DIS ---
DATE OF ADMISSION: 10/21/2018 DATE OF DISCHARGE: 10/27/2018 DISCHARGE DIAGNOSES: 1. Left lower extremity deep venous thrombosis. 2. Bilateral pulmonary emboli. 3. Tobacco abuse. 4. Cannabis abuse. CONSULTATIONS: 1. Dr. Hernández with Pulmonology Critical Care Service. 2. Dr. Fregoso with Cardiology Service. PERTINENT LAB AND X-RAY FINDINGS: Basic metabolic profile within normal limits. Total cholesterol 189, triglycerides 128, HDL 32, LDL 131. Troponin I ranged between 0.194 to 1.46. CBC showed a hemoglobin of 14.6, hematocrit 44.1, PT 25.7, INR 2.3. Urine drug screen dated 10/21/2018, positive for cannabinoids. CT angiogram of the chest dated 10/21/2018, showed extensive bilateral pulmonary emboli. 2D transthoracic echocardiogram dated 10/21/2018, showed ejection fraction of 60% to 65%. Diastolic dysfunction noted. Moderate left atrial enlargement. Bilateral lower extremity venous Doppler study dated 10/22/2018, showed deep vein thrombosis of the left popliteal vein. HOSPITAL COURSE: The patient was initially admitted after presenting with chest pain. The patient underwent evaluation including CT angiogram of the chest showing extensive bilateral pulmonary emboli with left lower extremity deep vein thrombosis confirmed by venous Doppler study in the popliteal vein. The patient was placed on subcutaneous Lovenox and Coumadin. The patient's Coumadin level was slow to reach therapeutic range, requiring increased Coumadin dosing up to 20 mg daily. The patient continued to receive Lovenox bridging during the hospital course and showed no evidence of active bleeding. The patient was maintaining O2 saturations in the mid 90% range on room air and clinically improved with resolution of chest pain. The patient underwent evaluation by the Cardiology Service after troponin I was elevated. However, this was in relation to pulmonary and deep venous thrombosis. The patient overall remained clinically stable during the hospital course, receiving education regarding Coumadin prudent diet. The patient was also given instructions regarding precautions while taking anticoagulation. Current recommendations are to continue anticoagulation therapy for 6 months after discharge. I have examined the patient at the time of discharge and discussed followup instructions. The patient is overall clinically stable and ready for discharge on 10/27/2018. DISCHARGE MEDICATIONS: Coumadin 5 mg p.o. daily, take 10 mg on 10/27/2018, then 5 mg p.o. daily thereafter. FOLLOWUP: The patient is to follow up with Cathryn Adams within 3 days of discharge and to draw PT/INR on 10/30/2018. CONDITION ON DISCHARGE: Stable. ACTIVITY: Ad-caity. DIET: Coumadin prudent and heart healthy. CODE STATUS: Full. DISPOSITION: To home, 10/27/2018. TIME SPENT: Total time preparing and coordinating discharge, 32 minutes. Job ID: [id number]
== END 2018-10-27 10:24 | disposition home or self-care (01) | DRG 176 ==
LOC: ERS 06:55 → 2NO 09:21 → T4-B 10-26 14:44
PROVIDERS: ADMIT Internal Medicine; ATTEND Internal Medicine
DX: I26.99 Other pulmonary embolism without acute cor pulmonale (principal); I82.432 Acute embolism and thrombosis of left popliteal vein; F41.9 Anxiety disorder, unspecified; F17.210 Nicotine dependence, cigarettes, uncomplicated; F12.90 Cannabis use, unspecified, uncomplicated; E78.00 Pure hypercholesterolemia, unspecified
CPT/HCPCS: 36415; 71275; 80048; 80061; 80306; 81003; 81015; 85014; 85018; 85025; 85049; 85379; 85610; 85730; 93005; 93010; 93306; 93970; 94760; 96365; 96366; J1200; J1644; J1650; J2405; Q9966